=== PATIENT | male | born 1970 | race Hispanic/Latino ===

== ENCOUNTER 2023-04-16 10:41 | Inpatient (IN) | payer SELFPAY ==
[2023-04-16 11:36] LABS: #Eosinphils 0.1 thou/uL (0.0-0.7); #Monocytes 0.5 thou/uL (0.11-0.59); #Neutrophils 6.6 thou/uL (1.40-6.50); %Basophils 0.5 % (0.0-1.0); %Eosinophils 0.9 % (0.0-10.0); %Lymphocytes 17.6 % (21.0-51.0); %Monocytes 5.9 % (0.0-10.0); %Neutrophils 74.8 % (42.0-75.0); Hematocrit 45.8 % (42.0-52.0); Mean Corpuscular HGB CONC 32.8 g/dL (32.0-36.0); Mean Corpuscular Hemoglobin 30.4 pg (27.0-31.0); Mean Corpuscular Volume 92.9 fl (78.0-98.0); Mean Platelet Volume 11.1 fL (7.4-10.4); Platelet Count 207 10x3/uL (130-400); RBC Distribution Width 15.3 % (11.5-14.5); Red Blood Cell (RBC) Count 4.93 mill/uL (4.70-6.10); White Blood Cell (WBC) Count 8.8 10x3/uL (4.8-10.8)
[2023-04-16] MEDS ORDERED: Amlodipine 5 MG TAB ONE (11:40)
[2023-04-16 11:58] LABS: ALT (SGPT) 30 U/L (8-55); AST (SGOT) 22 U/L (5-34); Albumin 3.5 g/dL (3.5-5.0); Alkaline Phosphatase 78 U/L (40-110); Anion Gap 17 mmol/L (10-20); BUN (Urea Nitrogen) 12 mg/dL (8.4-25.7); Bilirubin, Total 1.3 mg/dL (0.2-1.2); Calc. Creatinine Clearance 0 mL/min (70-130); Calcium 8.7 mg/dL (7.8-10.44); Carbon Dioxide 19 mmol/L (22-29); Chloride 108 mmol/L (98-107); Estimated GFR 79; Globulin 2.7 g/dL (2.4-3.5); Glucose 156 mg/dL (70-105); Magnesium 1.8 mg/dL (1.6-2.6); Potassium 3.5 mmol/L (3.5-5.1); Protein, Total 6.2 g/dL (6.0-8.3); Sodium 140 mmol/L (136-145)
[2023-04-16] MEDS ORDERED: Carvedilol 6.25 MG TAB PO SCH (12:00)
[2023-04-16 12:25] LABS: CKMB 1.1 ng/mL (0-6.6)
[2023-04-16] MEDS ORDERED: Ondansetron PF 4 MG/2 ML Vial ONE (12:32)
[2023-04-16] MEDS ORDERED: Morphine 4 MG/ML VIAL ONE (12:32)
[2023-04-16] MEDS ORDERED: Morphine 4 MG/ML VIAL SLOW IVP PRN (12:58)
[2023-04-16] MEDS ORDERED: Ondansetron ODT 4 MG TAB SL PRN (13:00)
[2023-04-16] MEDS ORDERED: Ondansetron PF 4 MG/2 ML Vial IVP PRN (13:00)
[2023-04-16] MEDS ORDERED: Acetaminophen 325 MG TAB PO PRN ×2 (13:06→13:30)
[2023-04-16] MEDS ORDERED: Furosemide 40 MG/4 ML VIAL SLOW IVP SCH (13:30)
[2023-04-16] MEDS ORDERED: Lidocaine 2% Viscous Solution 10 ML, Aluminum & Magnesium Hydroxide 30 ML SSW SCH (13:30)
[2023-04-16] MEDS ORDERED: HumaLOG 300 UNITS/3 ML VIAL SC PRN ×2 (13:31)
[2023-04-16] MEDS ORDERED: Dextrose 5% in Water 1,000 ML IV PRN (13:31)
[2023-04-16] MEDS ORDERED: Dextrose 50% Abboject 50 ML SYRINGE SLOW IVP PRN (13:31)
[2023-04-16] MEDS ORDERED: Glucagon 1 MG/ML KIT IM PRN (13:31)
[2023-04-16 14:34] LABS: Troponin I 0.517 ng/mL (< 0.028)
[2023-04-16] MEDS ORDERED: Heparin 25,000 units/D5W 500 ML IVPB SCH (14:47)
[2023-04-16] MEDS ORDERED: Heparin 10,000 UNITS/ 10 ML VIAL SLOW IVP SCH (15:00)
[2023-04-16] MEDS ORDERED: Morphine 2 MG/ML VIAL SLOW IVP SCH (15:00)
[2023-04-16 15:03] LABS: CKMB 1.1 ng/mL (0-6.6)
[2023-04-16 15:13] VITALS: BMI 39.4
[2023-04-16 15:21] LABS: Hematocrit 43.7 % (42.0-52.0); Hemoglobin 14.4 g/dL (14.0-18.0); Platelet Count 198 10x3/uL (130-400)
[2023-04-16] MEDS ORDERED: Nitroglycerin 50 MG/250 ML BOT 250 ML ONE (15:31)
[2023-04-16] MEDS ORDERED: Midazolam HCl 2 mg/2 ml Vial ONE (15:31)
[2023-04-16] MEDS ORDERED: Heparin 10,000 UNITS/ 10 ML VIAL ONE (15:31)
[2023-04-16] MEDS ORDERED: fentaNYL 50 mcg/mL 1 mL Vial ONE (15:31)
[2023-04-16] MEDS ORDERED: Verapamil 5 MG/2 ML VIAL ONE ×2 (15:31→16:12)
[2023-04-16] MEDS ORDERED: Adenosine 6 MG/2 ML VIAL ONE ×2 (15:31→16:11)
[2023-04-16] MEDS ORDERED: Lidocaine 1% (PF) 30 ML VIAL ONE (15:31)
[2023-04-16 15:36] LABS: INR-International Normal Ratio 1.2; PTT 27.8 sec (22.9-36.1); Prothrombin Time 15.7 sec (12.0-14.7)
[2023-04-16] MEDS ORDERED: Sodium Chloride 0.9% 200 ML IV PRN (16:44)
[2023-04-16] MEDS ORDERED: Nitroglycerin 0.4 MG TAB (25 Tab Bottle) SL PRN (16:44)
[2023-04-16] MEDS ORDERED: Acetaminophen/Codeine 30-300mg Tablet PO PRN ×2 (16:44)
[2023-04-16] MEDS ORDERED: Sodium Chloride 0.9% 1,000 ML IV SCH (16:45)
[2023-04-16 18:09] LABS: Critical Call Chem Troponin I RESULT DECREASING; Troponin I 0.483 ng/mL (< 0.028)
[2023-04-16] MEDS ORDERED: cloNIDine 0.1 MG TAB PO PRN (19:17)
[2023-04-16] MEDS ORDERED: Spironolactone 25 MG TAB PO SCH (19:30)
[2023-04-16] MEDS: Carvedilol 6.25 MG TAB PO SCH (21:24)
[2023-04-17 04:20] LABS: #Eosinphils 0.2 thou/uL (0.0-0.7); #Monocytes 0.6 thou/uL (0.11-0.59); #Neutrophils 4.7 thou/uL (1.40-6.50); %Basophils 0.5 % (0.0-1.0); %Eosinophils 2.8 % (0.0-10.0); %Lymphocytes 24.6 % (21.0-51.0); %Monocytes 8.1 % (0.0-10.0); %Neutrophils 63.6 % (42.0-75.0); Hematocrit 42.9 % (42.0-52.0); Hemoglobin 13.8 g/dL (14.0-18.0); Mean Corpuscular HGB CONC 32.2 g/dL (32.0-36.0); Mean Corpuscular Hemoglobin 30.2 pg (27.0-31.0); Mean Corpuscular Volume 93.9 fl (78.0-98.0); Mean Platelet Volume 11.1 fL (7.4-10.4); Platelet Count 180 10x3/uL (130-400); Red Blood Cell (RBC) Count 4.57 mill/uL (4.70-6.10); White Blood Cell (WBC) Count 7.4 10x3/uL (4.8-10.8)
[2023-04-17 04:55] LABS: Anion Gap 12 mmol/L (10-20); BUN (Urea Nitrogen) 13 mg/dL (8.4-25.7); Calc. Creatinine Clearance 107 mL/min (70-130); Calcium 8.7 mg/dL (7.8-10.44); Carbon Dioxide 27 mmol/L (22-29); Cardiac Risk 6.4 (Less than 4.5); Chloride 106 mmol/L (98-107); Cholesterol 178 mg/dl (< 200 Desired); Estimated GFR 77; Glucose 112 mg/dL (70-105); HDL Cholesterol 28 mg/dL (>60 Neg Risk); LDL Cholesterol, Calculated 128 mg/dL; Potassium 3.1 mmol/L (3.5-5.1); Sodium 142 mmol/L (136-145); Triglycerides 112 mg/dL (Less than 150)
[2023-04-17] MEDS ORDERED: Potassium Chloride 20 MEQ TAB PO SCH (08:00)
[2023-04-17] MEDS ORDERED: cloNIDine 0.1 MG TAB PO PRN (08:03)
[2023-04-17] MEDS ORDERED: Spironolactone 25 MG TAB PO SCH (09:00)
[2023-04-17] MEDS ORDERED: Atorvastatin Calcium 20 MG TAB PO SCH (09:00)
[2023-04-17] MEDS ORDERED: Carvedilol 6.25 MG TAB PO SCH (09:00)
[2023-04-17] MEDS: Losartan 25 MG TAB PO SCH (10:24)
[2023-04-17] MEDS: Carvedilol 6.25 MG TAB PO SCH ×2 (10:25→22:12)
[2023-04-17] MEDS: Amlodipine 5 MG TAB PO SCH (10:26)
[2023-04-17] MEDS: Atorvastatin Calcium 40 MG TAB PO SCH (22:12)
[2023-04-18 04:45] LABS: #Eosinphils 0.1 thou/uL (0.0-0.7); #Monocytes 0.8 thou/uL (0.11-0.59); #Neutrophils 6.6 thou/uL (1.40-6.50); %Basophils 0.5 % (0.0-1.0); %Lymphocytes 12.7 % (21.0-51.0); %Neutrophils 76.6 % (42.0-75.0); Hematocrit 44.2 % (42.0-52.0); Hemoglobin 14.4 g/dL (14.0-18.0); Mean Corpuscular HGB CONC 32.6 g/dL (32.0-36.0); Mean Corpuscular Hemoglobin 30.1 pg (27.0-31.0); Mean Corpuscular Volume 92.5 fl (78.0-98.0); Platelet Count 171 10x3/uL (130-400); Red Blood Cell (RBC) Count 4.78 mill/uL (4.70-6.10); White Blood Cell (WBC) Count 8.6 10x3/uL (4.8-10.8)
[2023-04-18 05:10] LABS: Anion Gap 14 mmol/L (10-20); BUN (Urea Nitrogen) 23 mg/dL (8.4-25.7); Calc. Creatinine Clearance 71 mL/min (70-130); Calcium 8.6 mg/dL (7.8-10.44); Carbon Dioxide 24 mmol/L (22-29); Chloride 105 mmol/L (98-107); Estimated GFR 49; Glucose 130 mg/dL (70-105); Potassium 3.6 mmol/L (3.5-5.1); Sodium 139 mmol/L (136-145)
[2023-04-18] MEDS ORDERED: Spironolactone 25 MG TAB PO SCH (08:00)
[2023-04-18] MEDS ORDERED: Iopamidol 370 76% 100 ML VIAL ONE (08:31)
[2023-04-18] MEDS: Aspirin 81 mg Enteric Coated Tablet PO SCH (08:52)
[2023-04-18] MEDS: Losartan 25 MG TAB PO SCH (08:52)
[2023-04-18] MEDS: Amlodipine 5 MG TAB PO SCH (08:53)
[2023-04-18] MEDS: Carvedilol 6.25 MG TAB PO SCH ×2 (08:53→20:14)
[2023-04-18] MEDS ORDERED: Lactated Ringer's 1,000 ML IV SCH (09:15)
[2023-04-18] MEDS ORDERED: Hydrochlorothiazide 25 MG TAB PO SCH (09:30)
[2023-04-18 15:07] LABS: Hematocrit 45.5 % (42.0-52.0); Hemoglobin 14.8 g/dL (14.0-18.0); Platelet Count 187 10x3/uL (130-400)
[2023-04-18] MEDS: Atorvastatin Calcium 40 MG TAB PO SCH (20:14)
[2023-04-19 04:39] LABS: #Eosinphils 0.2 thou/uL (0.0-0.7); #Monocytes 0.6 thou/uL (0.11-0.59); #Neutrophils 4.7 thou/uL (1.40-6.50); %Basophils 0.4 % (0.0-1.0); %Eosinophils 2.2 % (0.0-10.0); %Lymphocytes 24.4 % (21.0-51.0); %Monocytes 8.4 % (0.0-10.0); %Neutrophils 64.3 % (42.0-75.0); Hematocrit 41.9 % (42.0-52.0); Hemoglobin 13.6 g/dL (14.0-18.0); Mean Corpuscular HGB CONC 32.5 g/dL (32.0-36.0); Mean Corpuscular Hemoglobin 30.4 pg (27.0-31.0); Mean Corpuscular Volume 93.7 fl (78.0-98.0); Mean Platelet Volume 11.3 fL (7.4-10.4); Platelet Count 165 10x3/uL (130-400); RBC Distribution Width 15.1 % (11.5-14.5); Red Blood Cell (RBC) Count 4.47 mill/uL (4.70-6.10); White Blood Cell (WBC) Count 7.3 10x3/uL (4.8-10.8)
[2023-04-19 04:58] LABS: Anion Gap 12 mmol/L (10-20); BUN (Urea Nitrogen) 25 mg/dL (8.4-25.7); Calc. Creatinine Clearance 63 mL/min (70-130); Calcium 8.4 mg/dL (7.8-10.44); Carbon Dioxide 24 mmol/L (22-29); Chloride 104 mmol/L (98-107); Estimated GFR 42; Glucose 129 mg/dL (70-105); Potassium 3.4 mmol/L (3.5-5.1); Sodium 137 mmol/L (136-145)
[2023-04-19] MEDS ORDERED: Amlodipine 5 MG TAB PO SCH (06:30)
[2023-04-19] MEDS: Carvedilol 6.25 MG TAB PO SCH ×2 (08:57→20:38)
[2023-04-19] MEDS: Amlodipine 10 MG TAB PO SCH (08:57)
[2023-04-19] MEDS: Aspirin 81 mg Enteric Coated Tablet PO SCH (08:57)
[2023-04-19] MEDS ORDERED: Hydrochlorothiazide 25 MG TAB PO SCH (09:00)
[2023-04-19] MEDS: Atorvastatin Calcium 40 MG TAB PO SCH (20:38)
[2023-04-19] MEDS ORDERED: Apixaban 5 MG TAB PO SCH (21:00)
[2023-04-20 00:06] LABS: Bacteria/HPF None Seen HPF (None Seen); Bilirubin Negative (Negative); Blood, Urine Negative (Negative); Clarity Clear (Clear); Glucose, Urine (Dipstick) Normal (Negative); Ketone, Urine Negative (Negative); Leukocyte Negative Leu/uL (Negative); Nitrite Negative (Negative); Protein, Urine (Dipstick) 70 mg/dL (Neg-Trace); RBC/HPF None Seen HPF (0-3); Specific Gravity, Urine 1.015 (1.002-1.036); Squamous Epithelial None Seen HPF (0-3); Urobilinogen Normal mg/dL (Less than 2); WBC/HPF 0-3 HPF (0-3); pH, Urine 5.5 (5.0-9.0)
[2023-04-20 04:36] LABS: Phosphorus 4.4 mg/dL (2.3-4.7)
[2023-04-20 04:38] LABS: Anion Gap 16 mmol/L (10-20); BUN (Urea Nitrogen) 27 mg/dL (8.4-25.7); Calc. Creatinine Clearance 62 mL/min (70-130); Carbon Dioxide 25 mmol/L (22-29); Chloride 102 mmol/L (98-107); Estimated GFR 42; Glucose 136 mg/dL (70-105); Magnesium 1.7 mg/dL (1.6-2.6); Potassium 3.6 mmol/L (3.5-5.1); Sodium 139 mmol/L (136-145)
[2023-04-20] MEDS: Amlodipine 10 MG TAB PO SCH (08:38)
[2023-04-20] MEDS: Carvedilol 6.25 MG TAB PO SCH ×2 (08:40→20:53)
[2023-04-20] MEDS: Aspirin 81 mg Enteric Coated Tablet PO SCH (08:40)
[2023-04-20 15:20] LABS: Hematocrit 46.4 % (42.0-52.0); Hemoglobin 15.3 g/dL (14.0-18.0); Platelet Count 178 10x3/uL (130-400)
[2023-04-20] MEDS ORDERED: Magnesium 2 GM/50 ML(in water) 2 GM in Premix Bag 1 BAG IVPB SCH (15:30)
[2023-04-20] MEDS: Atorvastatin Calcium 40 MG TAB PO SCH (20:53)
[2023-04-21] MEDS ORDERED: Sevoflurane 250 ML INH ANEST BOTTLE ONE (04:43)
[2023-04-21 06:10] LABS: Albumin 3.3 g/dL (3.5-5.0); Anion Gap 15 mmol/L (10-20); BUN (Urea Nitrogen) 19 mg/dL (8.4-25.7); BUN/Creatinine Ratio 14.73; Calc. Creatinine Clearance 93 mL/min (70-130); Calcium 8.6 mg/dL (7.8-10.44); Carbon Dioxide 25 mmol/L (22-29); Chloride 102 mmol/L (98-107); Estimated GFR 66; Glucose 135 mg/dL (70-105); Magnesium 1.6 mg/dL (1.6-2.6); Phosphorus 3.9 mg/dL (2.3-4.7); Potassium 3.3 mmol/L (3.5-5.1); Sodium 139 mmol/L (136-145)
[2023-04-21] MEDS ORDERED: PROPOFOL 200 MG/20 ML VIAL ONE (09:20)
[2023-04-21] MEDS ORDERED: Iopamidol 370 76% 100 ML VIAL ONE (09:33)
[2023-04-21] MEDS ORDERED: Promethazine HCl 25 MG/ML VIAL IM PRN (09:41)
[2023-04-21] MEDS ORDERED: Ondansetron HCl/PF 4 MG/2 ML Vial IVP PRN (09:41)
[2023-04-21] MEDS: Carvedilol 6.25 MG TAB PO SCH ×2 (10:22→21:01)
[2023-04-21] MEDS: NIFEdipine XL 90 MG TAB PO SCH (10:22)
[2023-04-21] MEDS: Polyethylene Glycol 3350 17 GM Packet PO SCH (10:23)
[2023-04-21] MEDS: Aspirin 81 mg Enteric Coated Tablet PO SCH (10:23)
[2023-04-21] MEDS ORDERED: Potassium Chloride 20 MEQ TAB PO SCH (12:00)
[2023-04-21] MEDS ORDERED: Magnesium 2 GM/50 ML(in water) 2 GM in Premix Bag 1 BAG IVPB SCH (12:00)
[2023-04-21] MEDS ORDERED: Tamsulosin HCl 0.4 MG CAP PO SCH (21:00)
[2023-04-21] MEDS: Atorvastatin Calcium 40 MG TAB PO SCH (21:01)
[2023-04-22 04:03] LABS: Albumin 3.4 g/dL (3.5-5.0); Anion Gap 12 mmol/L (10-20); BUN (Urea Nitrogen) 11 mg/dL (8.4-25.7); BUN/Creatinine Ratio 11.46; Calc. Creatinine Clearance 125 mL/min (70-130); Calcium 8.7 mg/dL (7.8-10.44); Carbon Dioxide 27 mmol/L (22-29); Chloride 104 mmol/L (98-107); Estimated GFR 95; Glucose 123 mg/dL (70-105); Phosphorus 3.4 mg/dL (2.3-4.7); Potassium 3.2 mmol/L (3.5-5.1); Sodium 140 mmol/L (136-145)
[2023-04-22 07:39] LABS: Magnesium 1.6 mg/dL (1.6-2.6)
[2023-04-22] MEDS: Carvedilol 6.25 MG TAB PO SCH (08:57)
[2023-04-22] MEDS: Aspirin 81 mg Enteric Coated Tablet PO SCH (08:57)
[2023-04-22] MEDS: Polyethylene Glycol 3350 17 GM Packet PO SCH (08:58)
[2023-04-22] MEDS: NIFEdipine XL 90 MG TAB PO SCH (08:58)
[2023-04-22] MEDS ORDERED: Losartan 25 MG TAB PO SCH (09:45)
[2023-04-22] MEDS ORDERED: Spironolactone 25 MG TAB PO SCH (09:45)
[2023-04-22 12:44] VITALS: TEMP 97.5
[2023-04-22 15:33] VITALS: BP 132/76
[2023-04-22] MEDS ORDERED: metFORMIN 500 MG TAB PO SCH (17:00)
== END 2023-04-22 18:41 | disposition home health service (06) | DRG 280 ==
LOC: ERS 10:41 → ERHOLD 13:15 → 2NO 14:36
PROVIDERS: ADMIT Family Medicine; ATTEND Family Medicine
PROC: 4A023N7 Measurement of Cardiac Sampling and Pressure, Left Heart, Percutaneous Approach (ICD-10-PCS; principal; 2023-04-16)
PROC: B2111ZZ Fluoroscopy of Multiple Coronary Arteries using Low Osmolar Contrast (ICD-10-PCS; 2023-04-16)
PROC: B2151ZZ Fluoroscopy of Left Heart using Low Osmolar Contrast (ICD-10-PCS; 2023-04-16)
PROC: 0D758ZZ Dilation of Esophagus, Via Natural or Artificial Opening Endoscopic (ICD-10-PCS; 2023-04-21)
DX: I21.4 Non-ST elevation (NSTEMI) myocardial infarction (principal); I50.23 Acute on chronic systolic (congestive) heart failure; N17.0 Acute kidney failure with tubular necrosis; I16.1 Hypertensive emergency; I42.8 Other cardiomyopathies; E78.5 Hyperlipidemia, unspecified; E11.9 Type 2 diabetes mellitus without complications; E87.6 Hypokalemia; K21.9 Gastro-esophageal reflux disease without esophagitis; R13.10 Dysphagia, unspecified; N14.11 Contrast-induced nephropathy; T50.8X5A Adverse effect of diagnostic agents, initial encounter; I11.0 Hypertensive heart disease with heart failure; Z79.82 Long term (current) use of aspirin; Z79.84 Long term (current) use of oral hypoglycemic drugs; Z79.899 Other long term (current) drug therapy; Z87.891 Personal history of nicotine dependence
CPT/HCPCS: 36415; 36416; 71045; 71260; 74220; 76770; 76870; 80048; 80053; 80061; 80069; 81001; 82553; 82570; 83036; 83735; 83880; 84100; 84300; 84443; 84484; 84540; 85014; 85018; 85025; 85049; 85610; 87338; 93005; 93010; 93458; 93798; 97139; 99152; C1769; C1894; J0153; J1644; J1940; J2001; J2250; J2270; J2405; J2704; J3010; J3475; J7050; J7120; Q9967